=== PATIENT | female | born 1945 | race Caucasian/White ===

== ENCOUNTER 2017-10-08 13:02 | Emergency (ER) | payer MEDICARE, OTHER ==
[~2017-10-08] VITALS: Ht 152.4 cm; Wt 63.5 kg
--- NOTE | 2017-10-08 14:20 | NUR ---
PT WAS EVALUATED BY DR MARQUEZ. PT WAS D/C TO HOME. D/C INSTRUCTIONS GIVEN TO THE PT.
[2017-10-08 14:23] VITALS: BP 141/75
== END 2017-10-08 14:25 | disposition home or self-care (01) ==
LOC: ER 13:04
DX: H00.013 Hordeolum externum right eye, unspecified eyelid (principal); I10 Essential (primary) hypertension; E11.9 Type 2 diabetes mellitus without complications; E78.00 Pure hypercholesterolemia, unspecified
CPT/HCPCS: A4663

== ENCOUNTER 2018-11-05 12:54 | Emergency (ER) | payer MEDICARE, OTHER ==
[~2018-11-05] VITALS: Ht 152.4 cm; Wt 65.8 kg
--- NOTE | 2018-11-05 13:45 | NUR ---
Dr. Quiles here to see pt at bedside for MSE.
[2018-11-05] MEDS ORDERED: ACETAMINOPHEN ES 500 MG TABLET ONE (13:55)
[2018-11-05] MEDS ORDERED: ACETAMINOPHEN ES 500 MG TABLET PO ONE (14:00)
--- NOTE | 2018-11-05 15:28 | NUR ---
Patient discharged to home in stable conditon. Written and verbal after care instructions given. Patient verbalizes understanding of instructions.
== END 2018-11-05 15:28 | disposition home or self-care (01) ==
LOC: ER 12:54
DX: S62.616A Displaced fracture of proximal phalanx of right little finger, initial encounter for closed fracture (principal); S00.83XA Contusion of other part of head, initial encounter; I10 Essential (primary) hypertension; E78.00 Pure hypercholesterolemia, unspecified; W01.198A Fall on same level from slipping, tripping and stumbling with subsequent striking against other object, initial encounter; Y93.89 Activity, other specified; Y92.89 Other specified places as the place of occurrence of the external cause; Y99.8 Other external cause status
CPT/HCPCS: 70450; 70486; 72125; 73130; A4663; A9150

== ENCOUNTER 2019-07-13 18:39 | Emergency (ER) | payer MEDICARE, OTHER ==
[~2019-07-13] VITALS: Ht 157.5 cm; Wt 79.4 kg
[2019-07-13 19:18] LABS: BASOPHILS # (AUTO) 0.1 K/uL (0.0-8.0); BASOPHILS % (AUTO) 0.9 % (0.0-2.0); EOSINOPHILS # (AUTO) 0.2 K/uL (0.0-0.7); EOSINOPHILS % (AUTO) 1.9 % (0.0-7.0); HEMATOCRIT 38.2 % (31.2-41.9); LYMPHOCYTES # (AUTO) 3.2 K/uL (20.0-40.0); LYMPHOCYTES % (AUTO) 39.5 % (20.5-51.5); MEAN CORPUSCULAR HEMOGLOBIN 30.2 uug (24.7-32.8); MEAN CORPUSCULAR HGB CONC 34 g/dL (32.3-35.6); MEAN CORPUSCULAR VOLUME 89.1 fL (75.5-95.3); MONOCYTES # (AUTO) 0.7 K/uL (2.0-10.0); MONOCYTES % (AUTO) 8.2 % (0.0-11.0); NEUTROPHILS % (AUTO) 49.5 % (38.5-71.5); PLATELET COUNT (AUTO) 248 K/uL (179-408); RED BLOOD CELL COUNT(AUTO) 4.29 MIL/uL (3.63-4.92)
[2019-07-13] MEDS ORDERED: GLYB1TAB39 PO (19:35)
[2019-07-13] MEDS ORDERED: ASPI81TA31 PO (19:35)
[2019-07-13] MEDS ORDERED: VALS160T29 PO (19:35)
[2019-07-13] MEDS ORDERED: BISO1TAB99 PO (19:35)
[2019-07-13] MEDS ORDERED: AMLO5TAB9 PO (19:35)
[2019-07-13] MEDS ORDERED: ATOR10TA PO (19:35)
[2019-07-13 19:44] LABS: CREATININE 0.9 mg/dL (0.6-1.3)
[2019-07-13 19:57] LABS: BILIRUBIN,DIRECT 0.2 mg/dL (0.0-0.2); BILIRUBIN,TOTAL 0.7 mg/dL (0.2-1.0); TOTAL PROTEIN, SERUM 6.8 g/dL (6.4-8.2)
--- NOTE | 2019-07-13 20:15 | NUR ---
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
[2019-07-13 21:05] VITALS: BP 147/66
--- NOTE | 2019-07-13 21:05 | NUR ---
Patient discharged to home in stable conditon. Written and verbal after care instructions given. Patient verbalizes understanding of instructions. Pt walked out of ER in stable gait accompanied by 2 family members. Pt appears in no distress. Vital signs stable. Respirations even +unlabored.
== END 2019-07-13 21:06 | disposition home or self-care (01) ==
LOC: ER 18:39
DX: R60.9 Edema, unspecified (principal); I10 Essential (primary) hypertension; E78.00 Pure hypercholesterolemia, unspecified; Z79.82 Long term (current) use of aspirin; Z79.899 Other long term (current) drug therapy
CPT/HCPCS: 36415; 70030-TC; 71045; 85025; 85730; 93005; A4663

== ENCOUNTER 2023-07-11 15:54 | Emergency (ER) | payer MEDICARE, OTHER ==
[~2023-07-11] VITALS: Ht 157.5 cm; Wt 83.0 kg
[~2023-07-11 15:54] MED LIST: AMLO-212 PO; ASPI81TA31 PO; ATOR10TA PO; BISO1TAB99 PO; GLYB1TAB39 PO; VALS160T29 PO
[2023-07-11] MEDS ORDERED: ACETAMINOPHEN ES 500 MG TABLET PO ONE (16:30)
[2023-07-11] MEDS ORDERED: ACETAMINOPHEN ES 500 MG TABLET ONE (16:38)
[2023-07-11 17:50] VITALS: BP 169/69; O2SAT 98
== END 2023-07-11 17:52 | disposition home or self-care (01) ==
LOC: ER 15:54
DX: S63.502A Unspecified sprain of left wrist, initial encounter (principal); S00.83XA Contusion of other part of head, initial encounter; I10 Essential (primary) hypertension; E78.5 Hyperlipidemia, unspecified; E11.9 Type 2 diabetes mellitus without complications; Z79.82 Long term (current) use of aspirin; Z79.899 Other long term (current) drug therapy; W01.0XXA Fall on same level from slipping, tripping and stumbling without subsequent striking against object, initial encounter; Y93.89 Activity, other specified; Y92.89 Other specified places as the place of occurrence of the external cause; Y99.8 Other external cause status
CPT/HCPCS: 73080; 73090; 73110; A4606; A4663; A9150